=== PATIENT | female | born 1960 | race Caucasian/White ===

== ENCOUNTER 2021-09-29 16:18 | Outpatient (CLI) | payer MEDICAID, SELFPAY ==
[2021-09-29 10:36] LABS: Cholesterol* 182 mg/dL (90-199)
[2021-09-29 10:37] LABS: HDL Cholesterol* 36 mg/dL (>=50); LDL Cholesterol Calculated 87 mg/dL (<100); Triglycerides* 293 mg/dL (40-149)
== END 2021-09-29 16:19 | disposition home or self-care (01) ==
PROVIDERS: PCP Internal Medicine; Visit Provider Internal Medicine
DX: E78.5 Hyperlipidemia, unspecified (principal); E66.9 Obesity, unspecified
CPT/HCPCS: 80061